=== PATIENT | female | born 1940 | race Two or more races ===

== ENCOUNTER 2020-05-05 01:36 | Inpatient (IN) | payer MEDICARE, OTHER ==
[2020-05-05] VITALS (7 sets, daily range): BP systolic 121–166; BP diastolic 46–76
[~2020-05-05] VITALS: Ht 165.1 cm; Wt 43.9 kg
[~2020-05-05 01:36] MED LIST: ASPI-630 PO; CETI10CA PO; CETI10TA74 PO; CLOP75TA57 PO; COLE3.753 PO; ESOM40CA PO; HYDR200T5 PO; LEVO500T8 PO; LISI10TA16 PO; METO25TA2 PO; NITR1PAT73 TD; OXYC1TAB15 PO; PRAV10TA2 PO; PRED-220 PO; PRED1TAB3 PO
--- NOTE | 2020-05-05 02:05 | NUR ---
ADMISSION NOTE: Patient arrived to room 536 via EMS at approximately 0115. Bed low, locked, call light within reach. Placed on 2L NC. Patient incontinent of stool, carlos alberto care performed.
--- NOTE | 2020-05-05 09:20 | PDOC2 ---
NEUROLOGY CONSULT Date of Service DOS: DATE: 05/05/20 TIME: 09:20 Reason for Consult Reason for Consult: Altered mental status Referring Physician Referring Physician: Dr. Langford Source Source: Chart review, Patient History of Present Illness History of Present Illness The patient is an 79-year-old right-handed female with history of dementia, stroke, presented to [facility] emergency room last night with 3 days of confusion. She was more fatigued, sleeping a lot, not conversant. At baseline, she can speak limitedly in short sentences. She has bilateral [id number]-kime amputations, gets around in a wheelchair. She had a seizure in 2011. She had a stroke several years ago, details unknown. She was hospitalized at [facility] less than 2 weeks ago for congestive heart failure. In the emergency room chest x-ray showed hazy opacities unchanged from before, she also had leukocytosis. It was felt she met criteria for systemic inflammatory response syndrome, they checked blood cultures and started antibiotics. Past Medical History Cardiovascular: CAD, Hyperlipidemia, Other (Peripheral vascular disease) Pulmonary: Asthma, Pneumonia Heme/Onc: Anemia NOS (Mediterranean anemia (thallasemia?)) Musculoskeletal: Osteoarthritis Rheumatologic: Rheumatoid arthritis Past Surgical History Past Surgical History: Tonsillectomy, Other (Breast, right lower lobectomy, bilateral AKA) Family History Family History: No pertinent hx Social History Social History , no tobacco or alcohol Current Medications Current Medications Active Scripts Active Reported Percocet 5-325 Mg Tablet (Oxycodone/Acetaminophen) 1 Each Tablet 1 Tab PO PRN Q4HRS PRN Levofloxacin 500 Mg Tablet 1 Tab PO DAILY Zyrtec (Cetirizine Hcl) 10 Mg Tablet 1 Tab PO DAILY Welchol (Colesevelam Hcl) 3.75 Gm Powd.pack 1 Packet PO DAILY Hydroxychloroquine Sulfate 200 Mg Tablet 1 Tab PO BID Prednisone 10 Mg Tablet 10 Mg PO DAILY Prednisone 1 Mg Tablet 4 Tab PO DAILY Nexium Capsule (Esomeprazole Magnesium) 40 Mg Capsule. 1 Cap PO DAILY Aspirin 81 Mg Tab.chew 1 Tab PO DAILY Plavix (Clopidogrel Bisulfate) 75 Mg Tablet 1 Tab PO DAILY Toprol Xl (Metoprolol Succinate) 25 Mg Tab.er.24h 1 Tab PO DAILY Lisinopril 10 Mg Tablet 1 Tab PO DAILY Percocet 5-325 Mg Tablet (Oxycodone/Acetaminophen) 1 Each Tablet 1 Tab PO Q4HRS PRN Zyrtec (Cetirizine Hcl) 10 Mg Capsule 10 Mg PO HS Pravastatin Sodium 10 Mg Tablet 1 Tab PO QHS Welchol (Colesevelam Hcl) 3.75 Gm Powd.pack 3.75 Gm PO HS NITRO-DUR 0.4mg/hr (Nitroglycerin) 1 Each Patch.td24 1 Each TD DAILY Allergies Allergies: Coded Allergies: egg (Verified Allergy, Severe, Swelling, 05/28/14) Fish Containing Products (Verified Allergy, Intermediate, Rash, 05/31/14) Rash and swelling. Sulfa (Sulfonamide Antibiotics) (Verified Allergy, Intermediate, Swelling, 05/31/14) cephalexin (Verified Allergy, Intermediate, Rash, 05/31/14) doxycycline (Verified Allergy, Intermediate, Rash, 05/31/14) hydrocodone (Verified Allergy, Intermediate, Rash, 05/31/14) ibandronate sodium (Verified Allergy, Intermediate, Rash, 05/31/14) adhesive (Verified Adverse Reaction, Mild, Rash, 05/31/14) ROS Review of System Negative for fever, chills, weight loss, shortness of breath, chest pain, indigestion, hematochezia, melena, and dysuria. Full 14-point review of systems is negative. Physical Exam Physical Examination General: Well-developed, well-nourished female in no acute distress HEENT: Normocephalic andatraumatic. Temporal arteriespulsatile and nontender. Neck: Supple without bruit, no meningismus Musculoskeletal: Stability:see neurologic. Gait exam:see neurologic. Tone:see neurologic.Strength:see neurologic. Neurological: Mental Status: orientation, memory, attention span/concentration, language, fund of knowledge: knows "hospital" not date or reason for admission. Cranial Nerves:Pupils equal and reactive to light, extraocular movements areintact, visual caputo are full to confrontation. Facial sensation is normal. There is no facial asymmetry. Vestibulo-ocular reflex is intact. Palate elevates and tongue protrudes in midline. All other cranial related problems are negative except as mentioned before.Reflexes:2+ and symmetric. Plantar: bialteral AKA. Motor:4/5 strength with normal tone and bulk. Coordination:Finger-nose finger normal. Rapid alternating movements and fine finger movements are intact. Gait:Not test ed. Sensory:Normal pinprick, vibration, light touch, proprioception. Vitals VITALS Vital Signs Date Time Temp Pulse Resp B/P (MAP) Pulse Ox O2 Delivery O2 Flow Rate FiO2 05/05/20 07:00 96.8 75 16 166/70 (102) 95 Room Air 96.8 05/05/20 01:15 2.0 Labs Labs Laboratory Tests from [facility]aleksandra Test 05/04/20 19:22 05/04/20 20:22 White Blood Count 13.1 x10^3/uL (4.0-11.0) Red Blood Count 6.37 x10^6/uL (3.50-5.40) Hemoglobin 9.8 g/dL (12.0-15.5) Hematocrit 34.0 % (36.0-47.0) Mean Corpuscular Volume 53 fL (79-100) Mean Corpuscular Hemoglobin 15 pg (25-35) Mean Corpuscular Hemoglobin Concent 29 g/dL (31-37) Red Cell Distribution Width 25.6 % (11.5-14.5) Platelet Count 336 x10^3/uL (140-400) Prothrombin Time 11.3 SEC (9.4-11.4) Prothromb Time International Ratio 1.1 (0.9-1.1) Activated Partial Thromboplast Time 24 SEC (23-33) Sodium Level 141 mmol/L (136-145) Potassium Level 4.0 mmol/L (3.5-5.1) Chloride Level 102 mmol/L (98-107) Carbon Dioxide Level 28 mmol/L (21-32) Anion Gap 11 (6-14) Blood Urea Nitrogen 22 mg/dL (7-20) Creatinine 0.8 mg/dL (0.6-1.0) Estimated GFR (Cockcroft-Gault) 68.8 Glucose Level 106 mg/dL (70-99) Glucose (Fingerstick) 112 mg/dL (70-99) Calcium Level 8.6 mg/dL (8.5-10.1) Troponin I Quantitative < 0.017 ng/mL (0-0.055) KM-Wom-T-Type Natriuretic Peptide 569 pg/mL (0-449) Urine Collection Type Unknown Urine Color Straw Urine Clarity Clear Urine pH 6.0 Urine Specific [place] 1.020 Urine Protein Neg (NEG-TRACE) Urine Glucose (UA) Neg mg/dL (NEG) Urine Ketones (Stick) 15 mg/dL (NEG) Urine Blood Neg (NEG) Urine Nitrite Neg (NEG) Urine Bilirubin Neg (NEG) Urine Urobilinogen Dipstick 0.2 mg/dL (0.2 mg/dL) Urine Leukocyte Esterase Trace (NEG) Urine RBC 0 /HPF (0-2) Urine WBC 0 /HPF (0-4) Urine Squamous Epithelial Cells None /LPF Urine Bacteria 0 /HPF (0-FEW) Laboratory Tests Test 05/04/20 19:22 Glucose (Fingerstick) 112 mg/dL (70-99) H Images Images CT head, [facility] No focal parenchymal lesion or hemorrhage is identified. There is no midline shift or sulcal effacement. Mild patchy hypodensity in the periventricular white matter, progressed from the study in 2016. No acute vascular territory infarction is identified. Youssef-white distinction is preserved. The ventricular system is within normal limits without compression hydrocephalus. The basal cisterns are well maintained. The visualized portions of the paranasal sinuses and mastoid air cells are well- pneumatized. No acute fractures. IMPRESSION: Moderate small vessel ischemic change, technically age indeterminate without recent prior imaging. No acute hemorrhage. Assessment/Plan Assessment/Plan Impression: Metabolic encephalopathy in the setting of dementia and history of prior strokes, but I am not finding any evidence of any acute stroke. She did meet criteria for sepsis syndrome. Remote history of seizure Recommendations: I am holding off on stroke work-up such as MRI of the brain Treatment of medical diseases, from description, she is already much more alert today. I left a message with the patient's . Thank you for letting me help with the patient's care. NICOLE LAO MD May 05, 2020 09:20
--- NOTE | 2020-05-05 09:47 | NUR ---
SW following. Discussed with RN, pt from home with , 2L (SW to determine if this is used at home), NPO. Pt having a speech eval to determine diet. Pt will likely need PT/OT. SW will continue to follow.
[2020-05-05] MEDS ORDERED: oxyCODONE/APAP 5/325 1 TAB TABLET PO PRN ×3 (10:15→15:01)
[2020-05-05 11:24] LABS: HEMATOCRIT 31.7 % (36.0-47.0); HEMOGLOBIN 9.1 g/dL (12.0-15.5); RED BLOOD COUNT 5.91 x10^6/uL (3.50-5.40); RED CELL DISTRIBUTION WIDTH 25.7 % (11.5-14.5); WHITE BLOOD COUNT 11.7 x10^3/uL (4.0-11.0)
[2020-05-05 11:45] LABS: ALBUMIN 2.3 g/dL (3.4-5.0); ALBUMIN/GLOBULIN RATIO 0.5 (1.0-1.7); CALCIUM 8.5 mg/dL (8.5-10.1); CREATININE 0.7 mg/dL (0.6-1.0); GFR 80.3; POTASSIUM 3.5 mmol/L (3.5-5.1); TOTAL BILIRUBIN 0.3 mg/dL (0.2-1.0); TOTAL PROTEIN 7.3 g/dL (6.4-8.2)
[2020-05-05] MEDS ORDERED: CETIRIZINE HCL 10 MG TABLET. PO SCH (12:00)
[2020-05-05] MEDS ORDERED: predniSONE 1 MG TABLET PO SCH (12:00)
[2020-05-05] MEDS ORDERED: METOPROLOL SUCC 24HR ER 25 MG TAB.ER.24H. PO SCH (12:00)
[2020-05-05] MEDS ORDERED: predniSONE 10 MG TABLET PO SCH (12:00)
--- NOTE | 2020-05-05 12:05 | HP ---
ADMIT DATE: 05/05/2020 HISTORY OF PRESENT ILLNESS: The patient is an 79-year-old -[place] female patient who was brought to the Emergency Department by her family for a chief complaint of lethargy and her stated that they were in the Emergency Department approximately 9-10 days ago for heart failure exacerbation. According to him, after she went home, she did seem to have improved and was at her baseline up until about 3 days ago. About 3 days ago, she appeared to be more fatigued than usual and slept a lot. He stated that she was so tired that she either could not or did not want to have any conversation. He stated that she does have dementia, cannot converse at baseline very well, but usually does speak at least in short sentences. stated that she has been eating and drinking and making urine approximately normally but was constipated for about a week and just had a bowel movement on the day of admission. Her denied any falls, fever, cough, any complaint of pain and he does not think that she is in pain. Denies any other contacts except for him since being discharged from the hospital. She was extensively investigated in the Emergency Room and basically has had lab work that mostly showed that she had mild leukocytosis, severe microcytic hypochromic anemia with a hemoglobin of 9.8, hematocrit 34 and MCV of 53 only. Her chemistry was mostly unremarkable as well as her coagulation testing. Urinalysis was essentially unremarkable. She did have a CT scan of the head which basically showed moderate small vessel ischemic changes, technically age indeterminate, without recent prior imaging. No acute hemorrhage. The ventricular system is within normal limits without compression hydrocephalus. The basal cisterns are well maintained. The visualized portion of the paranasal sinuses and mastoid air cells are well pneumatized and there are no acute fractures. Her chest x-ray showed enlarged cardiomediastinal silhouette with calcific atherosclerosis. She has mild interstitial prominence again seen bilaterally with mild haziness at the lung bases. Degenerative changes of the spine and shoulders. Basically given the altered mental status, the patient was transferred to [facility] to consult the neurologist and arrange for an MRI if deemed necessary. She was started and treated with levofloxacin and lactated Ringer's. PAST MEDICAL HISTORY: Significant for: 1. Seizure disorder. 2. Coronary artery disease status post myocardial infarction. 3. Hyperlipidemia. 4. Hypertension. 5. Bronchial asthma. 6. Gastroesophageal reflux disease. 7. Osteoporosis. 8. History of osteomyelitis. 9. Thalassemia. PAST SURGICAL HISTORY: Significant for PCI with stent deployment. She has also lobectomy as well as hysterectomy. She apparently is known to have also senile macular degeneration and dementia. ALLERGIES: She is allergic to FISH CONTAINING PRODUCTS, STATIN, SULFA DRUGS, ADHESIVES, CEPHALEXIN, DOXYCYCLINE, EGG and HYDROCODONE. MEDICATIONS: She is currently on the following medications: 1. She is on cetirizine 10 mg once a day. 2. Albuterol sulfate 2 puffs every 4-6 hours. 3. Nitroglycerin per Nitro-Dur 1 patch transdermal daily. 4. She is on atenolol 50 mg once a day. 5. Aspirin 81 mg once a day. 6. Tylenol 650 mg every 6 hours. 7. Risperidone 0.25 mg daily. 8. Potassium chloride 20 mEq daily. 9. Furosemide 40 mg once a day. 10. Tessalon Perles 100 mg daily. 11. Breo Ellipta 100/25 mcg 1 puff once a day. 12. She is on montelukast 10 mg at bedtime. 13. She is on Protonix 20 mg once a day. 14. Hydrocortisone cream applied topically twice a day. 15. Vitamin B complex for methylcobalamin 1000 mcg chewable tablet once a day. REVIEW OF SYSTEMS: As per history of present illness. CODE STATUS: She is a Full Code. SOCIAL HISTORY: She apparently lives with her . She does not smoke, drink alcohol or use any recreational drugs. FAMILY HISTORY: Noncontributory. PHYSICAL EXAMINATION: GENERAL: On arrival to the Emergency Room, the patient was pale, but no jaundice, cyanosis or thyromegaly. No jugular venous distention. No limb edema. VITAL SIGNS: Her heart rate was 70, blood pressure was 135/60, temperature was 100.5, respiratory rate was 16, and oxygen saturation was 99% on 2 liters of oxygen. HEAD, EYES, EARS, NOSE AND THROAT: Showed normocephalic, atraumatic. NECK: Supple. HEART: Normal first and second heart sounds. No gallop, rub or murmur. CHEST: Shows central trachea. Equal bilateral chest expansion, air entry, vesicular sounds. No crepitation or rhonchi. ABDOMEN: Distended, soft, nontender. NEUROLOGIC: She apparently was lethargic and has a Floweree coma scale of 13. NIH was difficult to obtain as the patient has bilateral lower extremity amputation. Has moderate to late stage dementia. The patient was extremely sleepy and falls asleep in between questions. Grossly sensations were intact. The patient is able to lift both arms and hold them. Able to smile and able to open eyes on command. LABORATORY DATA: In the Emergency Room, she has had lab work done which showed a white cell count of 13,100, hemoglobin 9.8, hematocrit 34, MCV 53, and a platelet count of 336,000. Her chemistry showed a serum sodium 141, potassium 4, chloride 102, bicarbonate 28, anion gap of 11, BUN 22, creatinine 0.8, estimated GFR was 68 mL per minute. Her glucose was 106, calcium was 8.6. Beta natriuretic peptide was 569. Her prothrombin time was 11.3, INR 1.1, aPTT was 24. Her urinalysis showed the urine was straw colored, clear with a pH of 6, specific gravity of 1.020. The urine was negative for protein, glucose. There was trace of ketones, negative for blood, nitrite and bilirubin. There was trace of leukocyte esterase. There were no rbc's, no wbc's, and no bacteria. IMAGING: Her chest x-ray showed the patient has enlarged cardiomediastinal silhouette with calcific atherosclerosis. Mild interstitial prominence is again seen bilaterally with mild haziness at the lung bases. Degenerative changes of the spine and shoulder. The impression is that the patient has mild interstitial opacities bilaterally and haziness at the lung bases, which could be chronic in nature with mild pulmonary vascular congestion. Interstitial infiltrate is not excluded given this finding. CT scan of the head showed no focal parenchymal lesion or hemorrhage identified. There is no midline shift or sulcal effacement. Mild patchy hypodensity in the periventricular white matter progressed from the study in 2016. No acute vascular territory infarction identified. [place]ola white distinction is preserved. The ventricular system is within normal limits without compression hydrocephalus. The basal cisterns are well maintained. The visualized portion of the paranasal sinuses and mastoid air cells are well pneumatized. The patient's primary care physician is Juliet Colbert and she normally was taking all her care at [facility]. However, attempt to transfer her there yesterday was not successful and therefore she was transferred to [facility] with altered mental status and pneumonia. PLAN: Plan is to consult Dr. Deal as well as to arrange for an MRI of her brain and to continue with IV antibiotic and all her other medications. PALOMO JUAREZ MD DR: JOSE ANTONIO/krystal JOB#: [id number] / [id number]
[2020-05-05] MEDS: ATENOLOL 50 MG TABLET. PO SCH (13:16)
[2020-05-05] MEDS: CLOPIDOGREL BISULFATE 75 MG TABLET PO SCH (13:17)
[2020-05-05] MEDS: FUROSEMIDE 40 MG TABLET. PO SCH (13:17)
[2020-05-05] MEDS: PANTOPRAZOLE 40 MG TABLET.DR. PO SCH (13:17)
[2020-05-05] MEDS: ASPIRIN CHEWABLE 81 MG TABLET. PO SCH (13:18)
[2020-05-05] MEDS: HYDROXYCHLOROQUINE 200 MG TABLET PO SCH ×2 (13:18→22:31)
[2020-05-05] MEDS: LISINOPRIL 10 MG TABLET PO SCH (13:18)
[2020-05-05] MEDS: POTASSIUM CHLORIDE 20 MEQ TABLET.ER. PO SCH (13:18)
[2020-05-05] MEDS: NITROGLYCERIN 0.4MG/HR PATCH. TD SCH (13:19)
--- NOTE | 2020-05-05 16:24 | NUR ---
Wound/Ostomy Care Wound Type/Assessment: Wound consult for bilateral buttock wounds. Pt has DTI to bilateral buttocks that is dark purple and very tender. Pictuured, measured and assessed wounds Treatment Recommendations/Plan: Applied A&D ointment and turned to right side. Pt should be right and left turns only except while eating Education provided: Pt educated on PU prevention and WC POC Offloading surface/device: wedge, pillows Recommended Referrals/Tests: na Discharge Recommendations for dressings: see above
[2020-05-05] MEDS ORDERED: VITS A & D/LANOLIN TOPICAL OINTMENT 42GM TUBE. TP PRN (16:30)
[2020-05-05] MEDS ORDERED: COLESEVELAM HCL 3.75 GM PO SCH (21:00)
[2020-05-05] MEDS: ATORVASTATIN CALCIUM 10 MG TABLET. PO SCH (22:31)
[2020-05-05] MEDS: CETIRIZINE HCL 10 MG TABLET. PO SCH (22:31)
[2020-05-05] MEDS: LACTOBACILLUS RHAMNOSUS GG 1 CAPSULE. PO SCH (22:31)
[2020-05-06 03:00] VITALS: BP 138/64
[2020-05-06] MEDS: PANTOPRAZOLE 40 MG TABLET.DR. PO SCH (05:46)
[2020-05-06 07:00] VITALS: BP 133/73
[2020-05-06 07:36] LABS: HEMATOCRIT 33.2 % (36.0-47.0); HEMOGLOBIN 9.6 g/dL (12.0-15.5); RED BLOOD COUNT 6.12 x10^6/uL (3.50-5.40); RED CELL DISTRIBUTION WIDTH 26.3 % (11.5-14.5); WHITE BLOOD COUNT 13.3 x10^3/uL (4.0-11.0)
[2020-05-06 08:15] LABS: ALBUMIN 2.3 g/dL (3.4-5.0); ALBUMIN/GLOBULIN RATIO 0.4 (1.0-1.7); CALCIUM 8.6 mg/dL (8.5-10.1); CREATININE 0.9 mg/dL (0.6-1.0); GFR 60.1; POTASSIUM 3.6 mmol/L (3.5-5.1); TOTAL BILIRUBIN 0.3 mg/dL (0.2-1.0); TOTAL PROTEIN 7.7 g/dL (6.4-8.2)
[2020-05-06] MEDS ORDERED: COLESEVELAM HCL PO SCH (09:00)
--- NOTE | 2020-05-06 09:31 | PN ---
DATE: 05/06/2020 SUBJECTIVE: The patient is awake, alert, responds appropriately at times. She is eating her breakfast this morning, although the family stated that she is not back to her baseline. PHYSICAL EXAMINATION: GENERAL: When I examined her, she was pale, not jaundiced or cyanosed. No thyromegaly. No jugular venous distention. No limb edema. VITAL SIGNS: Her heart rate was 72, blood pressure was 138/64, temperature was 98.4, respiratory rate was 18, and oxygen saturation 100% on room air. HEAD, EYES, EARS, NOSE AND THROAT: Normocephalic, atraumatic. NECK: Supple. HEART: Showed normal first and second heart sounds. No gallop or murmur. CHEST: Clear to auscultation. No crepitation or rhonchi. ABDOMEN: Distended, soft, nontender. NEUROLOGICAL: She is demented, but has senile macular degeneration, but all other cranial nerves are intact. EXTREMITIES: She moves upper extremities without difficulty. She has bilateral below-knee amputations. SKIN: She has bilateral buttock wounds. The patient has deep tissue injuries to bilateral buttocks that are dark purple and very tender, ____ wounds and were covered with dressing after applying A and D ointment. ASSESSMENT: 1. Altered mental status, improved. The patient is now more awake, alert. 2. Other medical problems include seizure disorder. 3. Coronary artery disease, status post myocardial infarction. 4. Hyperlipidemia. 5. Hypertension. 6. Bronchial asthma. 7. Gastroesophageal reflux disease. 8. Osteoporosis and osteoarthritis. 9. History of osteomyelitis. 10. Thalassemia. 11. Bilateral deep tendon injuries. 12. Dementia. 13. Senile macular degeneration. PALOMO JUAREZ MD DR: JOSE ANTONIO/krystal JOB#: [id number] / [id number]
[2020-05-06] MEDS: ATENOLOL 50 MG TABLET. PO SCH (10:03)
[2020-05-06] MEDS: POTASSIUM CHLORIDE 20 MEQ TABLET.ER. PO SCH (10:03)
[2020-05-06] MEDS: FUROSEMIDE 40 MG TABLET. PO SCH (10:04)
[2020-05-06] MEDS: LACTOBACILLUS RHAMNOSUS GG 1 CAPSULE. PO SCH ×2 (10:04→20:56)
[2020-05-06] MEDS: HYDROXYCHLOROQUINE 200 MG TABLET PO SCH ×2 (10:04→20:56)
[2020-05-06] MEDS: ASPIRIN CHEWABLE 81 MG TABLET. PO SCH (10:04)
[2020-05-06] MEDS: CLOPIDOGREL BISULFATE 75 MG TABLET PO SCH (10:05)
[2020-05-06] MEDS: LISINOPRIL 10 MG TABLET PO SCH (10:05)
[2020-05-06] MEDS: NITROGLYCERIN 0.4MG/HR PATCH. TD SCH (10:07)
--- NOTE | 2020-05-06 10:38 | NUR ---
SW following. Discussed with RN, pt from home with , room air, dysphagia II. Pt is total feed and bed bound at home. PT/OT ordered. RN stated her paperwork states pt has home health - SW to determine which home health company pt is with. SW will continue to follow.
[2020-05-06 11:00] VITALS: BP 121/66
--- NOTE | 2020-05-06 13:06 | PDOC ---
PROGRESS NOTES Date of Service DATE: 05/06/20 TIME: 13:04 Assessment Metabolic encephalopathy in the setting of dementia and history of prior strokes, but I am not finding any evidence of any acute stroke. She did meet criteria for sepsis syndrome. Remote history of seizure Plan Holding off on stroke work-up such as MRI of the brain Treatment of medical diseases, already much better Aim for discharge in the next day or [address] Langford Discussed with family Subjective No complaints Objective Vital Signs Date Time Temp Pulse Resp B/P (MAP) Pulse Ox O2 Delivery O2 Flow Rate FiO2 05/06/20 11:00 97.9 88 18 121/66 (84) 96 Room Air 97.9 05/05/20 20:00 2.0 Intake and Output 05/06/20 07:00 Intake Total 360 ml Output Total 825 ml Balance -465 ml Intake Oral 360 ml Output Urine Total 825 ml # Bowel Movements 2 PHYSICAL EXAM Alert. Does not know name of hospital or date PERRL. EOMI. CN: no focal findings. Muscle tone: normal. Muscle strength: 4/5 DTR: 2+ Plantar reflex: Flexor Gait: not examined in bed. Sensory exam: no abnormal findings. No cerebellar signs elicited. Review of Relevant I have reviewed the following items zaik (where applicable) has been applied. Labs Laboratory Tests Test 05/05/20 11:13 05/06/20 07:18 White Blood Count 11.7 x10^3/uL (4.0-11.0) 13.3 x10^3/uL (4.0-11.0) Red Blood Count 5.91 x10^6/uL (3.50-5.40) 6.12 x10^6/uL (3.50-5.40) Hemoglobin 9.1 g/dL (12.0-15.5) 9.6 g/dL (12.0-15.5) Hematocrit 31.7 % (36.0-47.0) 33.2 % (36.0-47.0) Mean Corpuscular Volume 54 fL (79-100) 54 fL (79-100) Mean Corpuscular Hemoglobin 15 pg (25-35) 16 pg (25-35) Mean Corpuscular Hemoglobin Concent 29 g/dL (31-37) 29 g/dL (31-37) Red Cell Distribution Width 25.7 % (11.5-14.5) 26.3 % (11.5-14.5) Platelet Count 341 x10^3/uL (140-400) 318 x10^3/uL (140-400) Sodium Level 141 mmol/L (136-145) 144 mmol/L (136-145) Potassium Level 3.5 mmol/L (3.5-5.1) 3.6 mmol/L (3.5-5.1) Chloride Level 103 mmol/L (98-107) 106 mmol/L (98-107) Carbon Dioxide Level 27 mmol/L (21-32) 27 mmol/L (21-32) Anion Gap 11 (6-14) 11 (6-14) Blood Urea Nitrogen 23 mg/dL (7-20) 32 mg/dL (7-20) Creatinine 0.7 mg/dL (0.6-1.0) 0.9 mg/dL (0.6-1.0) Estimated GFR (Cockcroft-Gault) 80.3 60.1 BUN/Creatinine Ratio 33 (6-20) 36 (6-20) Glucose Level 83 mg/dL (70-99) 118 mg/dL (70-99) Calcium Level 8.5 mg/dL (8.5-10.1) 8.6 mg/dL (8.5-10.1) Total Bilirubin 0.3 mg/dL (0.2-1.0) 0.3 mg/dL (0.2-1.0) Aspartate Amino Transf (AST/SGOT) 32 U/L (15-37) 32 U/L (15-37) Alanine Aminotransferase (ALT/SGPT) 18 U/L (14-59) 19 U/L (14-59) Alkaline Phosphatase 70 U/L (46-116) 72 U/L (46-116) Total Protein 7.3 g/dL (6.4-8.2) 7.7 g/dL (6.4-8.2) Albumin 2.3 g/dL (3.4-5.0) 2.3 g/dL (3.4-5.0) Albumin/Globulin Ratio 0.5 (1.0-1.7) 0.4 (1.0-1.7) Laboratory Tests Test 05/06/20 07:18 White Blood Count 13.3 x10^3/uL (4.0-11.0) Red Blood Count 6.12 x10^6/uL (3.50-5.40) Hemoglobin 9.6 g/dL (12.0-15.5) Hematocrit 33.2 % (36.0-47.0) Mean Corpuscular Volume 54 fL (79-100) Mean Corpuscular Hemoglobin 16 pg (25-35) Mean Corpuscular Hemoglobin Concent 29 g/dL (31-37) Red Cell Distribution Width 26.3 % (11.5-14.5) Platelet Count 318 x10^3/uL (140-400) Sodium Level 144 mmol/L (136-145) Potassium Level 3.6 mmol/L (3.5-5.1) Chloride Level 106 mmol/L (98-107) Carbon Dioxide Level 27 mmol/L (21-32) Anion Gap 11 (6-14) Blood Urea Nitrogen 32 mg/dL (7-20) Creatinine 0.9 mg/dL (0.6-1.0) Estimated GFR (Cockcroft-Gault) 60.1 BUN/Creatinine Ratio 36 (6-20) Glucose Level 118 mg/dL (70-99) Calcium Level 8.6 mg/dL (8.5-10.1) Total Bilirubin 0.3 mg/dL (0.2-1.0) Aspartate Amino Transf (AST/SGOT) 32 U/L (15-37) Alanine Aminotransferase (ALT/SGPT) 19 U/L (14-59) Alkaline Phosphatase 72 U/L (46-116) Total Protein 7.7 g/dL (6.4-8.2) Albumin 2.3 g/dL (3.4-5.0) Albumin/Globulin Ratio 0.4 (1.0-1.7) Medications Current Medications Aspirin (Aspirin Chewable) 81 mg DAILY PO Last administered on 05/06/20at 10:04; Start 05/05/20 at 12:00 Cetirizine HCl (ZyrTEC) 10 mg DAILY PO ; Start 05/05/20 at 12:00; Stop 05/05/20 at 10:20; Status DC Clopidogrel Bisulfate (Plavix) 75 mg DAILY PO Last administered on 05/06/20at 10:05; Start 05/05/20 at 12:00 Hydroxychloroquine Sulfate (Plaquenil) 200 mg BID PO Last administered on 05/06/20at 10:04; Start 05/05/20 at 12:00 Levofloxacin (Levaquin) 500 mg DAILY PO ; Start 05/06/20 at 09:00; Stop 05/05/20 at 10:38; Status DC Lisinopril (Prinivil) 10 mg DAILY PO Last administered on 05/06/20at 10:05; Start 05/05/20 at 12:00 Metoprolol Succinate (Toprol Xl) 25 mg DAILY PO ; Start 05/05/20 at 12:00; Stop 05/05/20 at 11:54; Status DC Nitroglycerin (Nitro-Dur 0.4mg) 1 patch DAILY TD Last administered on 05/06/20at 10:07; Start 05/05/20 at 12:00 Oxycodone/ Acetaminophen (Percocet 5/325) 1 tab PRN Q4HRS PRN PO MODERATE PAIN; Start 05/05/20 at 10:15; Stop 05/06/20 at 08:56; Status DC Oxycodone/ Acetaminophen (Percocet 5/325) 1 tab PRN Q4HRS PRN PO SEVERE PAIN; Start 05/05/20 at 10:15; Stop 05/05/20 at 15:01; Status DC Prednisone (Prednisone) 4 mg DAILY PO ; Start 05/05/20 at 12:00; Status Cancel Prednisone (Prednisone) 10 mg DAILY PO ; Start 05/05/20 at 12:00; Stop 05/05/20 at 11:50; Status DC Cetirizine HCl (ZyrTEC) 10 mg HS PO Last administered on 05/05/20at 22:31; Start 05/05/20 at 21:00 Non-Formulary Medication (Colesevelam Hcl (Welchol)) 1 packet DAILY PO ; Start 05/06/20 at 09:00; Stop 05/05/20 at 10:47; Status DC Non-Formulary Medication (Colesevelam Hcl (Welchol)) 3.75 gm HS PO ; Start 05/05/20 at 21:00; Stop 05/05/20 at 10:47; Status DC Pantoprazole Sodium (Protonix) 40 mg DAILYAC PO Last administered on 05/06/20at 05:46; Start 05/05/20 at 12:00 Atorvastatin Calcium (Lipitor) 5 mg QHS PO Last administered on 05/05/20at 22:31; Start 05/05/20 at 21:00 Levofloxacin/ Dextrose 100 ml @ 100 mls/hr Q24H IV ; Start 05/05/20 at 21:15; Stop 05/05/20 at 10:54; Status DC Levofloxacin/ Dextrose 50 ml @ 50 mls/hr Q24H IV Last administered on 05/05/20at 22:33; Start 05/05/20 at 21:00 Furosemide (Lasix) 40 mg DAILY PO Last administered on 05/06/20at 10:04; Start 05/05/20 at 13:00 Potassium Chloride (Klor-Con) 20 meq DAILYWBKFT PO Last administered on 05/06/20at 10:03; Start 05/05/20 at 13:00 Atenolol (Tenormin) 50 mg DAILY PO Last administered on 05/06/20at 10:03; Start 05/05/20 at 13:00 Oxycodone/ Acetaminophen (Percocet 5/325) 2 tab PRN Q4HRS PRN PO SEVERE PAIN; Start 05/05/20 at 15:01; Stop 05/06/20 at 08:56; Status DC Lactobacillus Rhamnosus (Culturelle) 1 cap BID PO Last administered on 05/06/20at 10:04; Start 05/05/20 at 21:00 Vitamin A/Vitamin D (Vitamin A & D Ointment) 1 leigha PRN Q1HR PRN TP SKIN PROTECTION; Start 05/05/20 at 16:30 Active Scripts Active Reported Percocet 5-325 Mg Tablet (Oxycodone/Acetaminophen) 1 Each Tablet 1 Tab PO PRN Q4HRS PRN Levofloxacin 500 Mg Tablet 1 Tab PO DAILY Zyrtec (Cetirizine Hcl) 10 Mg Tablet 1 Tab PO DAILY Welchol (Colesevelam Hcl) 3.75 Gm Powd.pack 1 Packet PO DAILY Hydroxychloroquine Sulfate 200 Mg Tablet 1 Tab PO BID Prednisone (Prednisone) 10 Mg Tablet 10 Mg PO DAILY Prednisone 1 Mg Tablet 4 Tab PO DAILY Nexium Capsule (Esomeprazole Magnesium) 40 Mg Capsule.dr 1 Cap PO DAILY Aspirin 81 Mg Tab.chew 1 Tab PO DAILY Plavix (Clopidogrel Bisulfate) 75 Mg Tablet 1 Tab PO DAILY Toprol Xl (Metoprolol Succinate) 25 Mg Tab.er.24h 1 Tab PO DAILY Lisinopril 10 Mg Tablet 1 Tab PO DAILY Percocet 5-325 Mg Tablet (Oxycodone/Acetaminophen) 1 Each Tablet 1 Tab PO Q4HRS PRN Zyrtec (Cetirizine Hcl) 10 Mg Capsule 10 Mg PO HS Pravastatin Sodium 10 Mg Tablet 1 Tab PO QHS Welchol (Colesevelam Hcl) 3.75 Gm Powd.pack 3.75 Gm PO HS NITRO-DUR 0.4mg/hr (Nitroglycerin) 1 Each Patch.td24 1 Each TD DAILY Vitals/I & O Vital Sign - Last 24 Hours 05/05/20 05/05/20 05/05/20 05/05/20 13:16 13:18 15:00 19:00 Temp 99.0 98.1 99.0 98.1 Pulse 72 72 79 72 Resp 16 18 B/P (MAP) 132/53 132/53 123/46 (71) 121/60 (80) Pulse Ox 93 97 O2 Delivery Room Air Room Air 05/05/20 05/05/20 05/06/20 05/06/20 20:00 23:00 03:00 07:00 Temp 98.0 98.4 98.1 98.0 98.4 98.1 Pulse 70 72 79 Resp 18 18 17 B/P (MAP) 124/63 (83) 138/64 (88) 133/73 (93) Pulse Ox 100 100 93 O2 Delivery Nasal Cannula Room Air Room Air Room Air O2 Flow Rate 2.0 05/06/20 05/06/20 05/06/20 10:03 10:05 11:00 Temp 97.9 97.9 Pulse 79 79 88 Resp 18 B/P (MAP) 133/73 133/73 121/66 (84) Pulse Ox 96 O2 Delivery Room Air Intake and Output 05/05/20 05/05/20 05/06/20 15:00 23:00 07:00 Intake Total 120 ml 240 ml Output Total 425 ml 400 ml Balance -305 ml -160 ml Justicifation of Admission Dx: Justifications for Admission: Justification of Admission Dx: N/A NICOLE LAO MD May 06, 2020 13:06
[2020-05-06 15:00] VITALS: BP 103/47
[2020-05-06] MEDS: ASCORBIC ACID 500 MG TABLET PO SCH (15:10)
[2020-05-06] MEDS: MULTIVITAMIN with MINERAL TABLET. PO SCH (15:10)
[2020-05-06 19:02] VITALS: BP 128/57
[2020-05-06] MEDS: CETIRIZINE HCL 10 MG TABLET. PO SCH (20:56)
[2020-05-06] MEDS: ATORVASTATIN CALCIUM 10 MG TABLET. PO SCH (20:57)
[2020-05-06 23:00] VITALS: BP 114/43
[2020-05-07 02:46] VITALS: BP 136/61
[2020-05-07 07:00] VITALS: BP 145/63
[2020-05-07 08:05] LABS: HEMATOCRIT 31.8 % (36.0-47.0); HEMOGLOBIN 9.4 g/dL (12.0-15.5); RED BLOOD COUNT 5.89 x10^6/uL (3.50-5.40); RED CELL DISTRIBUTION WIDTH 26.1 % (11.5-14.5); WHITE BLOOD COUNT 9.8 x10^3/uL (4.0-11.0)
[2020-05-07 08:20] LABS: ALBUMIN 2.3 g/dL (3.4-5.0); ALBUMIN/GLOBULIN RATIO 0.4 (1.0-1.7); CALCIUM 8.4 mg/dL (8.5-10.1); GFR 53.2; POTASSIUM 3.6 mmol/L (3.5-5.1); TOTAL BILIRUBIN 0.2 mg/dL (0.2-1.0); TOTAL PROTEIN 7.5 g/dL (6.4-8.2)
--- NOTE | 2020-05-07 09:37 | PN ---
DATE: 05/07/2020 SUBJECTIVE: The patient is resting, slightly propped up in bed, in no apparent respiratory distress. She is awake and alert. She is responding at times appropriately. She is mostly bedbound. PHYSICAL EXAMINATION: GENERAL: When I examined her, she was pale, but no jaundice, cyanosis or thyromegaly. No jugular venous distension. No limb edema. VITAL SIGNS: Her heart rate was 69, blood pressure was 145/63, temperature 97.6, respiratory rate was 18 and oxygen saturation was 95% on room air. HEAD, EYES, EARS, NOSE AND THROAT: Normocephalic, atraumatic. NECK: Supple. HEART: Showed normal first and second heart sounds. No gallop or murmur. CHEST: Clear to auscultation. No crepitation or rhonchi. ABDOMEN: Distended, soft, nontender. NEUROLOGIC: She is demented, but without any obvious lateralizing sign. 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 She moves upper extremities without difficulty. She has bilateral below-knee amputation. She does have bilateral gluteal deep tissue injury. Her intake was 360, output was 825. LABORATORY DATA: Her lab work this morning showed her white cell count is 9800, hemoglobin 9.4, hematocrit 32, MCV 54 and platelet count 275. Serum sodium of 148, potassium 3.6, chloride 110, bicarbonate 29, anion gap of 9, BUN 37, creatinine 1 and estimated GFR was 53 mL per minute. Her glucose was 99 and calcium was 8.4. Total bilirubin, AST, ALT and alkaline phosphatase were normal. Total protein 7.5, albumin was 2.3. ASSESSMENT AND PLAN Given that her serum sodium is going up, I will hold her Lasix and continue meanwhile with all other medication including IV levofloxacin for pneumonia. Continue with wound care. She will be discharged home. As her family state that the house is not ready for her, they ordered a hospital bed and she can be discharged there tomorrow with home health. PALOMO JUAREZ MD DR: JOSE ANTONIO/krystal JOB#: [id number] / [id number]
[2020-05-07] MEDS: ASPIRIN CHEWABLE 81 MG TABLET. PO SCH (10:07)
[2020-05-07] MEDS: LISINOPRIL 10 MG TABLET PO SCH (10:07)
[2020-05-07] MEDS: MULTIVITAMIN with MINERAL TABLET. PO SCH (10:07)
[2020-05-07] MEDS: LACTOBACILLUS RHAMNOSUS GG 1 CAPSULE. PO SCH ×2 (10:07→20:30)
[2020-05-07] MEDS: ASCORBIC ACID 500 MG TABLET PO SCH (10:07)
[2020-05-07] MEDS: POTASSIUM CHLORIDE 20 MEQ TABLET.ER. PO SCH (10:08)
[2020-05-07] MEDS: PANTOPRAZOLE 40 MG TABLET.DR. PO SCH (10:08)
[2020-05-07] MEDS: ATENOLOL 50 MG TABLET. PO SCH (10:08)
[2020-05-07] MEDS: CLOPIDOGREL BISULFATE 75 MG TABLET PO SCH (10:08)
[2020-05-07] MEDS: NITROGLYCERIN 0.4MG/HR PATCH. TD SCH (10:09)
[2020-05-07 11:00] VITALS: BP 147/58
--- NOTE | 2020-05-07 11:28 | NUR ---
SW following. Discussed with RN, pt from home with , room air, dysphagia II diet. Dr. Langford plans to discharge pt home with [facility] tomorrow (05/08/20). SW verified pt is current with [facility]. SW to fax clinicals and discharge orders tomorrow prior to dischage. SW will continue to follow.
[2020-05-07 15:00] VITALS: BP 120/52
--- NOTE | 2020-05-07 15:37 | PDOC ---
PROGRESS NOTES Date of Service DATE: 05/07/20 TIME: 15:35 Assessment Metabolic encephalopathy in the setting of dementia and history of prior strokes, but I am not finding any evidence of any acute stroke. She did meet criteria for sepsis syndrome. Remote history of seizure Plan Holding off on stroke work-up such as MRI of the brain Treatment of medical diseases, already much better Okay for discharge Neurology signs off. Follow-up with neurology as needed. Objective Vital Signs Date Time Temp Pulse Resp B/P (MAP) Pulse Ox O2 Delivery O2 Flow Rate FiO2 05/07/20 15:00 97.5 66 18 120/52 (74) 96 Room Air 97.5 Intake and Output 05/07/20 07:00 Intake Total 260 ml Output Total 450 ml Balance -190 ml Intake Oral 260 ml Output Urine Total 450 ml Stool Total 0 ml PHYSICAL EXAM Alert. Does not know name of hospital or date PERRL. EOMI. CN: no focal findings. Muscle tone: normal. Muscle strength: 4/5 DTR: 2+ Plantar reflex: Flexor Gait: not examined in bed. Sensory exam: no abnormal findings. No cerebellar signs elicited. Review of Relevant I have reviewed the following items zaki (where applicable) has been applied. Labs Laboratory Tests Test 05/06/20 07:18 05/07/20 06:45 White Blood Count 13.3 x10^3/uL (4.0-11.0) 9.8 x10^3/uL (4.0-11.0) Red Blood Count 6.12 x10^6/uL (3.50-5.40) 5.89 x10^6/uL (3.50-5.40) Hemoglobin 9.6 g/dL (12.0-15.5) 9.4 g/dL (12.0-15.5) Hematocrit 33.2 % (36.0-47.0) 31.8 % (36.0-47.0) Mean Corpuscular Volume 54 fL (79-100) 54 fL (79-100) Mean Corpuscular Hemoglobin 16 pg (25-35) 16 pg (25-35) Mean Corpuscular Hemoglobin Concent 29 g/dL (31-37) 30 g/dL (31-37) Red Cell Distribution Width 26.3 % (11.5-14.5) 26.1 % (11.5-14.5) Platelet Count 318 x10^3/uL (140-400) 275 x10^3/uL (140-400) Sodium Level 144 mmol/L (136-145) 148 mmol/L (136-145) Potassium Level 3.6 mmol/L (3.5-5.1) 3.6 mmol/L (3.5-5.1) Chloride Level 106 mmol/L (98-107) 110 mmol/L (98-107) Carbon Dioxide Level 27 mmol/L (21-32) 29 mmol/L (21-32) Anion Gap 11 (6-14) 9 (6-14) Blood Urea Nitrogen 32 mg/dL (7-20) 32 mg/dL (7-20) Creatinine 0.9 mg/dL (0.6-1.0) 1.0 mg/dL (0.6-1.0) Estimated GFR (Cockcroft-Gault) 60.1 53.2 BUN/Creatinine Ratio 36 (6-20) 32 (6-20) Glucose Level 118 mg/dL (70-99) 99 mg/dL (70-99) Calcium Level 8.6 mg/dL (8.5-10.1) 8.4 mg/dL (8.5-10.1) Total Bilirubin 0.3 mg/dL (0.2-1.0) 0.2 mg/dL (0.2-1.0) Aspartate Amino Transf (AST/SGOT) 32 U/L (15-37) 30 U/L (15-37) Alanine Aminotransferase (ALT/SGPT) 19 U/L (14-59) 18 U/L (14-59) Alkaline Phosphatase 72 U/L (46-116) 67 U/L (46-116) Total Protein 7.7 g/dL (6.4-8.2) 7.5 g/dL (6.4-8.2) Albumin 2.3 g/dL (3.4-5.0) 2.3 g/dL (3.4-5.0) Albumin/Globulin Ratio 0.4 (1.0-1.7) 0.4 (1.0-1.7) Laboratory Tests Test 05/07/20 06:45 White Blood Count 9.8 x10^3/uL (4.0-11.0) Red Blood Count 5.89 x10^6/uL (3.50-5.40) Hemoglobin 9.4 g/dL (12.0-15.5) Hematocrit 31.8 % (36.0-47.0) Mean Corpuscular Volume 54 fL (79-100) Mean Corpuscular Hemoglobin 16 pg (25-35) Mean Corpuscular Hemoglobin Concent 30 g/dL (31-37) Red Cell Distribution Width 26.1 % (11.5-14.5) Platelet Count 275 x10^3/uL (140-400) Sodium Level 148 mmol/L (136-145) Potassium Level 3.6 mmol/L (3.5-5.1) Chloride Level 110 mmol/L (98-107) Carbon Dioxide Level 29 mmol/L (21-32) Anion Gap 9 (6-14) Blood Urea Nitrogen 32 mg/dL (7-20) Creatinine 1.0 mg/dL (0.6-1.0) Estimated GFR (Cockcroft-Gault) 53.2 BUN/Creatinine Ratio 32 (6-20) Glucose Level 99 mg/dL (70-99) Calcium Level 8.4 mg/dL (8.5-10.1) Total Bilirubin 0.2 mg/dL (0.2-1.0) Aspartate Amino Transf (AST/SGOT) 30 U/L (15-37) Alanine Aminotransferase (ALT/SGPT) 18 U/L (14-59) Alkaline Phosphatase 67 U/L (46-116) Total Protein 7.5 g/dL (6.4-8.2) Albumin 2.3 g/dL (3.4-5.0) Albumin/Globulin Ratio 0.4 (1.0-1.7) Medications Current Medications Aspirin (Aspirin Chewable) 81 mg DAILY PO Last administered on 05/07/20at 10:07; Start 05/05/20 at 12:00 Cetirizine HCl (ZyrTEC) 10 mg DAILY PO ; Start 05/05/20 at 12:00; Stop 05/05/20 at 10:20; Status DC Clopidogrel Bisulfate (Plavix) 75 mg DAILY PO Last administered on 05/07/20at 10:08; Start 05/05/20 at 12:00 Hydroxychloroquine Sulfate (Plaquenil) 200 mg BID PO Last administered on 05/06/20at 20:56; Start 05/05/20 at 12:00; Stop 05/07/20 at 09:19; Status DC Levofloxacin (Levaquin) 500 mg DAILY PO ; Start 05/06/20 at 09:00; Stop 05/05/20 at 10:38; Status DC Lisinopril (Prinivil) 10 mg DAILY PO Last administered on 05/07/20at 10:07; Start 05/05/20 at 12:00 Metoprolol Succinate (Toprol Xl) 25 mg DAILY PO ; Start 05/05/20 at 12:00; Stop 05/05/20 at 11:54; Status DC Nitroglycerin (Nitro-Dur 0.4mg) 1 patch DAILY TD Last administered on 05/07/20at 10:09; Start 05/05/20 at 12:00 Oxycodone/ Acetaminophen (Percocet 5/325) 1 tab PRN Q4HRS PRN PO MODERATE PAIN; Start 05/05/20 at 10:15; Stop 05/06/20 at 08:56; Status DC Oxycodone/ Acetaminophen (Percocet 5/325) 1 tab PRN Q4HRS PRN PO SEVERE PAIN; Start 05/05/20 at 10:15; Stop 05/05/20 at 15:01; Status DC Prednisone (Prednisone) 4 mg DAILY PO ; Start 05/05/20 at 12:00; Status Cancel Prednisone (Prednisone) 10 mg DAILY PO ; Start 05/05/20 at 12:00; Stop 05/05/20 at 11:50; Status DC Cetirizine HCl (ZyrTEC) 10 mg HS PO Last administered on 05/06/20at 20:56; Start 05/05/20 at 21:00 Non-Formulary Medication (Colesevelam Hcl (Welchol)) 1 packet DAILY PO ; Start 05/06/20 at 09:00; Stop 05/05/20 at 10:47; Status DC Non-Formulary Medication (Colesevelam Hcl (Welchol)) 3.75 gm HS PO ; Start 05/05/20 at 21:00; Stop 05/05/20 at 10:47; Status DC Pantoprazole Sodium (Protonix) 40 mg DAILYAC PO Last administered on 05/07/20at 10:08; Start 05/05/20 at 12:00 Atorvastatin Calcium (Lipitor) 5 mg QHS PO Last administered on 05/06/20at 20:57; Start 05/05/20 at 21:00 Levofloxacin/ Dextrose 100 ml @ 100 mls/hr Q24H IV ; Start 05/05/20 at 21:15; Stop 05/05/20 at 10:54; Status DC Levofloxacin/ Dextrose 50 ml @ 50 mls/hr Q24H IV Last administered on 05/06/20at 20:53; Start 05/05/20 at 21:00 Furosemide (Lasix) 40 mg DAILY PO Last administered on 05/06/20at 10:04; Start 05/05/20 at 13:00; Stop 05/07/20 at 09:32; Status DC Potassium Chloride (Klor-Con) 20 meq DAILYWBKFT PO Last administered on 05/07/20at 10:08; Start 05/05/20 at 13:00 Atenolol (Tenormin) 50 mg DAILY PO Last administered on 05/07/20at 10:08; Start 05/05/20 at 13:00 Oxycodone/ Acetaminophen (Percocet 5/325) 2 tab PRN Q4HRS PRN PO SEVERE PAIN; Start 05/05/20 at 15:01; Stop 05/06/20 at 08:56; Status DC Lactobacillus Rhamnosus (Culturelle) 1 cap BID PO Last administered on 05/07/20at 10:07; Start 05/05/20 at 21:00 Vitamin A/Vitamin D (Vitamin A & D Ointment) 1 leigha PRN Q1HR PRN TP SKIN PROTECTION; Start 05/05/20 at 16:30 Multivitamins (Thera M Plus) 1 tab DAILY PO Last administered on 05/07/20at 10:07; Start 05/06/20 at 14:15 Ascorbic Acid (Vitamin C) 500 mg DAILY PO Last administered on 05/07/20at 10:07; Start 05/06/20 at 14:15 Active Scripts Active Reported Percocet 5-325 Mg Tablet (Oxycodone/Acetaminophen) 1 Each Tablet 1 Tab PO PRN Q4HRS PRN Levofloxacin 500 Mg Tablet 1 Tab PO DAILY Zyrtec (Cetirizine Hcl) 10 Mg Tablet 1 Tab PO DAILY Welchol (Colesevelam Hcl) 3.75 Gm Powd.pack 1 Packet PO DAILY Hydroxychloroquine Sulfate 200 Mg Tablet 1 Tab PO BID Prednisone (Prednisone) 10 Mg Tablet 10 Mg PO DAILY Prednisone 1 Mg Tablet 4 Tab PO DAILY Nexium Capsule (Esomeprazole Magnesium) 40 Mg Capsule.dr 1 Cap PO DAILY Aspirin 81 Mg Tab.chew 1 Tab PO DAILY Plavix (Clopidogrel Bisulfate) 75 Mg Tablet 1 Tab PO DAILY Toprol Xl (Metoprolol Succinate) 25 Mg Tab.er.24h 1 Tab PO DAILY Lisinopril 10 Mg Tablet 1 Tab PO DAILY Percocet 5-325 Mg Tablet (Oxycodone/Acetaminophen) 1 Each Tablet 1 Tab PO Q4HRS PRN Zyrtec (Cetirizine Hcl) 10 Mg Capsule 10 Mg PO HS Pravastatin Sodium 10 Mg Tablet 1 Tab PO QHS Welchol (Colesevelam Hcl) 3.75 Gm Powd.pack 3.75 Gm PO HS NITRO-DUR 0.4mg/hr (Nitroglycerin) 1 Each Patch.td24 1 Each TD DAILY Vitals/I & O Vital Sign - Last 24 Hours 05/06/20 05/06/20 05/06/20 05/07/20 19:02 20:00 23:00 02:46 Temp 98.7 98.0 98.1 98.7 98.0 98.1 Pulse 90 71 70 Resp 20 18 18 B/P (MAP) 128/57 (80) 114/43 (66) 136/61 (86) Pulse Ox 94 98 95 O2 Delivery Room Air Room Air Room Air Room Air 05/07/20 05/07/20 05/07/20 05/07/20 07:00 08:00 10:07 10:08 Temp 97.6 97.6 Pulse 69 69 69 Resp 18 B/P (MAP) 145/63 (90) 145/63 145/63 Pulse Ox 95 O2 Delivery Room Air Room Air 05/07/20 05/07/20 11:00 15:00 Temp 98.1 97.5 98.1 97.5 Pulse 66 66 Resp 18 18 B/P (MAP) 147/58 (87) 120/52 (74) Pulse Ox 95 96 O2 Delivery Room Air Room Air l Intake and Output 05/06/20 05/06/2021 15:00 23:00 07:00 Intake Total 260 ml Output Total 250 ml 200 ml 0 ml Balance -250 ml 60 ml 0 ml Justicifation of Admission Dx: Justifications for Admission: Justification of Admission Dx: N/A NICOLE LAO MD May 07, 2020 15:37
[2020-05-07 19:00] VITALS: BP 126/28
[2020-05-07] MEDS: ATORVASTATIN CALCIUM 10 MG TABLET. PO SCH (20:30)
[2020-05-07] MEDS: CETIRIZINE HCL 10 MG TABLET. PO SCH (20:30)
[2020-05-07 23:00] VITALS: BP 137/41
[2020-05-08] VITALS (7 sets, daily range): BP systolic 118–214; BP diastolic 43–88
[2020-05-08] MEDS: PANTOPRAZOLE 40 MG TABLET.DR. PO SCH (05:26)
[2020-05-08] MEDS: POTASSIUM CHLORIDE 20 MEQ TABLET.ER. PO SCH (08:00)
--- NOTE | 2020-05-08 08:50 | NUR ---
PATIENTS' DAUGHTER AT THE BEDSIDE AND INFORMED THIS GASOLINE FINISHER THAT THE PATIENTS' FAMILY MEMBERS (2 SONS) HAVE TESTED POSITIVE FOR COVI-19 AND THAT THEY HAVE BEEN IN CONTACT WITH THE PATIENT, DR. JUAREZ INFORMED AND ORDERS RECEIVED.
[2020-05-08] MEDS: LACTOBACILLUS RHAMNOSUS GG 1 CAPSULE. PO SCH ×2 (09:00→19:44)
[2020-05-08] MEDS: ASPIRIN CHEWABLE 81 MG TABLET. PO SCH (09:00)
[2020-05-08] MEDS: MULTIVITAMIN with MINERAL TABLET. PO SCH (09:00)
[2020-05-08] MEDS: LISINOPRIL 10 MG TABLET PO SCH (09:00)
[2020-05-08] MEDS: CLOPIDOGREL BISULFATE 75 MG TABLET PO SCH (09:00)
[2020-05-08] MEDS: ATENOLOL 50 MG TABLET. PO SCH (09:00)
[2020-05-08] MEDS: ASCORBIC ACID 500 MG TABLET PO SCH (09:00)
--- NOTE | 2020-05-08 09:05 | NUR ---
AM MEDICATIONS HELD PER THIS PUBLICITY WRITER PATIENT WILL NOT CONSUME BREAKFAST (REFUSING).
[2020-05-08 09:20] LABS: CALCIUM 8.6 mg/dL (8.5-10.1); CREATININE 0.8 mg/dL (0.6-1.0); GFR 68.8; POTASSIUM 4.1 mmol/L (3.5-5.1)
--- NOTE | 2020-05-08 09:46 | PN ---
DATE: 05/08/2020 SUBJECTIVE: The patient is resting, slightly propped up in bed, in no apparent distress, sleepy, but arousable. The nursing staff stated that she has spiked her temperature up to 101.2 despite the fact that she was already on IV Levaquin for possible community-acquired pneumonia. It transpired that 5/6 siblings have been tested positive for coronavirus and unfortunately they were visiting her area. Her tested negative about a week ago and only 1 daughter tested negative recently. OBJECTIVE: GENERAL: On examining her, she was pale, but no jaundice, cyanosis or thyromegaly. No jugular venous distention or limb edema. VITAL SIGNS: Her heart rate was 86, blood pressure was 170/69, temperature was 101.2, respiratory rate was 22 and oxygen saturation was 96% on room air. HEAD, EYES, EARS, NOSE AND THROAT: Showed normocephalic, atraumatic. NECK: Supple. HEART: Showed normal first and second heart sounds. No gallop, rub or murmur. CHEST: Clear to auscultation. No crepitation or rhonchi. ABDOMEN: Distended, soft and nontender. NEUROLOGIC: She is demented, but she does open her eyes and responds appropriately. All cranial nerves are intact. EXTREMITIES: She moves upper extremities without difficulty. She has bilateral below-knee amputation. She does have deep tissue injury both the gluteal area. Her intake over the last 24 hours was 260, output was 450. LABORATORY DATA: Her lab work this morning showed that her serum sodium has risen further to 154, potassium 4.1, chloride 115, bicarbonate 26, anion gap of 13, BUN 21, creatinine 0.8 and estimated GFR was 68 mL per minute. Her glucose was 77 and calcium was 8.6. ASSESSMENT: 1. The patient is now PUI given that she has been exposed to many of her children. She has spiked her temperature up to 101.2. 2. Hypernatremia. 3. She has community-acquired pneumonia, for which she was on IV levofloxacin. She has also deep tissue injury both the gluteal area. PLAN: My plan is to transfer her to the 6th floor as a PUI. We will order the coronavirus testing and also start her on D5W as her sodium has dramatically risen to 154 that might be contributing to her lethargy. I will also order blood culture, repeat chest x-ray and decide further management accordingly. PALOMO JAUREZ MD DR: JOSE ANTONIO/krystal JOB#: [id number] / [id number]
--- NOTE | 2020-05-08 09:56 | NUR ---
SW following. Discussed with RN and Dr. Langford. Plan was for pt to be discharged home today, however pt's children have tested positive for COVID-19. Pt's is being tested today and pt is also being tested and transferred to [address] [place] [address]. Pt's family had been visiting with pt. If pt is COVID negative, pt will discharge home with [facility], and family will have to take precautions. [facility] faxed clinicals to [facility], added to weekend discharge list in case pt's test comes back negative over the weekend. [facility] will continue to follow.
[2020-05-08] MEDS: IV DEXTROSE 5% 1,000 ML IV SCH ×2 (10:18→20:34)
--- NOTE | 2020-05-08 10:20 | NUR ---
HEENA SWAB OBTAINED AND WALKED DOWN TO LAB PER THIS [employer]CH[employer]ECT, PATIENTS' DAUGHTER AND SPOUSE REMAIN AT THE BEDSIDE.
[2020-05-08] MEDS: NITROGLYCERIN 0.4MG/HR PATCH. TD SCH (11:06)
[2020-05-08] MEDS ORDERED: ACETAMINOPHEN 650 MG SUPP.RECT. PR PRN (11:15)
--- NOTE | 2020-05-08 13:51 | RAD ---
Single view of the chest. 05/08/2020 9:42 AM Indication: Reason: fever with ??? exposure to COVID 19 / Spl. Instructions: / History: Comparison: Chest radiograph March 08, 2004 Findings: There is a probable small right pleural effusion. There is diffuse interstitial coarsening, somewhat increased with respect to comparison study. No pneumothorax. Heart size is top normal. Aort ic calcification noted. No acute osseous changes are seen. IMPRESSION: 1.Interval increase in interstitial thickening. This could reflect chronic change, or mild edema. An atypical or viral infectious process is also possible. 2. Small right pleural effusion. Electronically signed by: Shalom Kearns MD (05/08/2020 1:49 PM) [id number]
--- NOTE | 2020-05-08 13:54 | NUR ---
Wound Care Wound Type/Assessment: Follow up visit for DTI's to bilateral buttocks. At this time the wound is ST II with DTI, pink, moist wound bed with purple edges. No other open areas noted on head to toe assessment. Treatment Recommendations/Plan: Continue to apply A&D ointment to bilateral buttocks BID and PRN soiling. Turn Q2H Education provided: Education inappropriate for this pt d/t mental status Offloading surface/device: Wedge, turned to L side, pillows for cushion and comfort Recommended Referrals/Tests: NA Discharge Recommendations for dressings: As above. Follow up 05/12/20
--- NOTE | 2020-05-08 17:30 | NUR ---
Aimee, Gamb Cutter, sent a referral to [facility] to evaluate for GIP.
--- NOTE | 2020-05-08 19:42 | NUR ---
Per hospice nurse evaluation, patient does not qualify at this time. Will re-evaluate tommorrow. Call with any changes/decline.
[2020-05-08] MEDS: ATORVASTATIN CALCIUM 10 MG TABLET. PO SCH (19:45)
[2020-05-08] MEDS: CETIRIZINE HCL 10 MG TABLET. PO SCH (19:45)
[2020-05-09 03:48] VITALS: BP 132/60
[2020-05-09 05:19] LABS: HEMOGLOBIN 9.5 g/dL (12.0-15.5); RED BLOOD COUNT 6.07 x10^6/uL (3.50-5.40); RED CELL DISTRIBUTION WIDTH 26.3 % (11.5-14.5); WHITE BLOOD COUNT 9.5 x10^3/uL (4.0-11.0)
[2020-05-09 05:39] LABS: ALBUMIN 2.3 g/dL (3.4-5.0); ALBUMIN/GLOBULIN RATIO 0.4 (1.0-1.7); CALCIUM 7.9 mg/dL (8.5-10.1); CREATININE 0.9 mg/dL (0.6-1.0); GFR 60.1; POTASSIUM 3.3 mmol/L (3.5-5.1); TOTAL BILIRUBIN 0.3 mg/dL (0.2-1.0); TOTAL PROTEIN 7.5 g/dL (6.4-8.2)
[2020-05-09 07:00] VITALS: BP 173/72
[2020-05-09] MEDS: ASCORBIC ACID 500 MG TABLET PO SCH (08:47)
[2020-05-09] MEDS: ASPIRIN CHEWABLE 81 MG TABLET. PO SCH (08:48)
[2020-05-09] MEDS: LACTOBACILLUS RHAMNOSUS GG 1 CAPSULE. PO SCH (08:48)
[2020-05-09] MEDS: LISINOPRIL 10 MG TABLET PO SCH (08:48)
[2020-05-09] MEDS: CLOPIDOGREL BISULFATE 75 MG TABLET PO SCH (08:48)
[2020-05-09] MEDS: ATENOLOL 50 MG TABLET. PO SCH (08:48)
[2020-05-09] MEDS: POTASSIUM CHLORIDE 20 MEQ TABLET.ER. PO SCH (08:48)
[2020-05-09] MEDS: PANTOPRAZOLE 40 MG TABLET.DR. PO SCH (08:48)
[2020-05-09] MEDS: MULTIVITAMIN with MINERAL TABLET. PO SCH (08:49)
[2020-05-09] MEDS ORDERED: DEXAMETHASONE SOD PHOS 4 MG/ML VIAL IVP SCH (10:15)
[2020-05-09] MEDS ORDERED: MEROPENEM 500 MG in IV NORMAL SALINE 50ML 50 ML IV SCH (10:15)
[2020-05-09] MEDS ORDERED: POTASSIUM CL 20MEQ IN D5W 1,000 ML IV SCH (10:15)
--- NOTE | 2020-05-09 10:24 | PN ---
DATE: 05/09/2020 SUBJECTIVE: The patient is resting slightly propped up in bed, continued to be lethargic, confused. She did spike a temperature yesterday up to 101.7. Her chemistry showed sodium is coming down to 147. PHYSICAL EXAMINATION: GENERAL: When I examined her this morning, she was resting slightly propped up in bed, in no apparent respiratory distress. She was pale, but no jaundice, cyanosis or thyromegaly. No jugular venous distention. No limb edema. VITAL SIGNS: Her heart rate was 79, blood pressure was 173/72, temperature was 99.2, respiratory rate was 18 and oxygen saturation was 93%. HEAD, EYES, EARS, NOSE, AND THROAT: Showed normocephalic, atraumatic. NECK: Supple. HEART: Showed normal first and second heart sounds. No gallop or murmur. CHEST: Clear to auscultation. No crepitation or rhonchi. ABDOMEN: Distended, soft, nontender. No guarding or rigidity. No organomegaly. All hernial orifice intact. Bowel sounds normal. NEUROLOGIC: She is demented, confused; however, all her cranial nerves are intact. She moves upper extremities. She has bilateral below-knee amputation. She has deep tissue injury both the gluteal area. LABORATORY DATA: Her intake over the last 24 hours was incompletely recorded; output was 750. As of this morning, her serum sodium is down to 147, potassium 3.3, chloride 110, bicarbonate 27, anion gap of 10, BUN 18, creatinine 0.9. Estimated GFR was 60 mL per minute. Her glucose 125, calcium was 7.9. Total bilirubin, AST, ALT, alkaline phosphatase were normal. Total protein 7.5, albumin 2.3. Her white cell count was 9500; hemoglobin 9.5; hematocrit 33; MCV 54; and platelet count 279,000. ASSESSMENT: 1. The patient is positive for COVID-19 by rapid testing. 2. Hypernatremia. 3. She was on IV levofloxacin. 4. Hypokalemia. PLAN: My plan is to change IV fluid to D5 with potassium chloride. I will change the IV antibiotic to Zosyn and start her also on dexamethasone. I await the evaluation by hospice as the patient has really advanced dementia and her encephalopathy. The patient is very lethargic for extended period of time. PALOMO JUAREZ MD DR: Chuck JOB#: [id number] / [id number]
[2020-05-09 11:00] VITALS: BP 180/76
[2020-05-09] MEDS: NITROGLYCERIN 0.4MG/HR PATCH. TD SCH (11:44)
--- NOTE | 2020-05-09 14:17 | NUR ---
Pt discharged and admitted to inpatient hospice.
--- NOTE | 2020-05-10 10:33 | DS ---
DATE OF DISCHARGE: 05/09/2020 HOSPITAL COURSE: The patient is an 79-year-old female patient who was admitted through the Emergency Department with complaint of lethargy. She was seen initially at the Emergency Room of [facility], diagnosed with pneumonia and was transferred to [facility] for Neurology consult and possible MRI. The patient's level of consciousness improved; however, she continued to have intermittently lethargic. Her oral intake is poor and she also spiked her temperature and was found to be positive for coronavirus. She was also hypernatremic for which she was treated here with IV D5W and despite treatment with IV fluid, she continued to be somewhat lethargic. Her family requested hospice care; and therefore, the patient was discharged to inpatient hospice care and continued on comfort and end-of-life care. PHYSICAL EXAMINATION: GENERAL: On the day of discharge, she was somewhat pale, but no jaundice, cyanosis or thyromegaly. No jugular venous distention. No lower limb edema. VITAL SIGNS: Her heart rate was 78, blood pressure was 180/76, temperature 97.8, respiratory rate was 18 and oxygen saturation was 93%. HEAD, EYES, EARS, NOSE AND THROAT: Showed normocephalic, atraumatic. NECK: Supple. HEART: Normal first and second heart sounds. No gallop or murmur. CHEST: Clear to auscultation. No crepitation or rhonchi. ABDOMEN: Distended, soft, nontender. NEUROLOGIC: She was demented without any obvious lateralizing sign. She moves her upper extremities without difficulty. She has bilateral below-knee amputation. She has deep tissue injury both the gluteal area. DISCHARGE MEDICATIONS: The patient was admitted to inpatient hospice to continue on morphine, Ativan, acetaminophen, bisacodyl and scopolamine. FINAL DISCHARGE DIAGNOSES: 1. COVID-19 infection. 2. Altered mental status. 3. Advanced dementia. 4. Seizure disorder. 5. Coronary artery disease, status post myocardial infarction. 6. Hyperlipidemia. 7. Hypertension. 8. Bronchial asthma 9. Thalassemia. PALOMO JUAREZ MD DR: JOSE ANTONIO/krystal JOB#: [id number] / [id number]
== END 2020-05-09 14:19 | disposition hospice, home (50) | DRG 177 ==
LOC: 5 NORTH 01:36 → 6 SOUTH 05-08 11:34
PROVIDERS: ADMIT Internal Medicine; ATTEND Internal Medicine
DX: U07.1 COVID-19 (principal); G93.41 Metabolic encephalopathy; J12.82 Pneumonia due to coronavirus disease 2019; E43 Unspecified severe protein-calorie malnutrition; E87.0 Hyperosmolality and hypernatremia; F03.90 Unspecified dementia, unspecified severity, without behavioral disturbance, psychotic disturbance, mood disturbance, and anxiety; G40.909 Epilepsy, unspecified, not intractable, without status epilepticus; I25.10 Atherosclerotic heart disease of native coronary artery without angina pectoris; I25.2 Old myocardial infarction; M19.90 Unspecified osteoarthritis, unspecified site; M81.0 Age-related osteoporosis without current pathological fracture; H35.30 Unspecified macular degeneration; K21.9 Gastro-esophageal reflux disease without esophagitis; D56.9 Thalassemia, unspecified; E78.5 Hyperlipidemia, unspecified; J45.909 Unspecified asthma, uncomplicated; Z89.611 Acquired absence of right leg above knee; Z89.612 Acquired absence of left leg above knee; D50.9 Iron deficiency anemia, unspecified; E87.6 Hypokalemia; I11.0 Hypertensive heart disease with heart failure; I50.9 Heart failure, unspecified; I73.9 Peripheral vascular disease, unspecified; M06.9 Rheumatoid arthritis, unspecified; Z51.5 Encounter for palliative care; Z86.73 Personal history of transient ischemic attack (TIA), and cerebral infarction without residual deficits; Z90.710 Acquired absence of both cervix and uterus; Z95.5 Presence of coronary angioplasty implant and graft; Z88.1 Allergy status to other antibiotic agents; Z88.5 Allergy status to narcotic agent; Z88.8 Allergy status to other drugs, medicaments and biological substances
CPT/HCPCS: 36415; 71045; 80048; 80053; 85027; 87426; J1100; J1956; J2185; J3480; J7060; 92526-GN; 92610-GN; 97110-GO; 97535-GO; G0378

== ENCOUNTER 2020-05-09 14:28 | Inpatient (IN) | payer OTHER ==
[~2020-05-09] VITALS: Ht 134.6 cm; Wt 44.6 kg
[2020-05-09] MEDS ORDERED: BISACODYL 10 MG SUPP.RECT. PR PRN (14:45)
[2020-05-09] MEDS ORDERED: ACETAMINOPHEN 650 MG SUPP.RECT. PR PRN (14:45)
[2020-05-09] MEDS ORDERED: MORPHINE SULFATE 2 MG/ML VIAL. IV PRN (14:45)
[2020-05-09] MEDS ORDERED: SCOPOLAMINE 1.5MG PATCH. TD SCH (15:00)
[2020-05-09 19:00] VITALS: BP 144/67
[2020-05-10 07:00] VITALS: BP 141/66
--- NOTE | 2020-05-10 10:27 | HP ---
ADMIT DATE: 05/10/2020 HISTORY OF PRESENT ILLNESS: The patient is an 79-year-old female patient who was admitted originally with altered mental status that somewhat improved, although she is extremely demented, confused. She basically has marked functional decline. She is requiring assistance with all activities of her ADLs. She was found to be positive for coronavirus with coronavirus pneumonia. Her intake was poor. She was very dehydrated and hypernatremic and the family requested hospice and comfort care; and therefore, the patient was discharged to inpatient hospice. PHYSICAL EXAMINATION: GENERAL: On examining her today, she looked well and was clearly in no apparent respiratory distress. She is pale, but no jaundice, cyanosis or thyromegaly. No jugular venous distention. No lower limb edema. VITAL SIGNS: Her heart rate was 78, blood pressure is 141/66, temperature was 99.7, respiratory rate was 30 and oxygen saturation was 95% on room air. HEAD, EYES, EARS, NOSE AND THROAT: Showed normocephalic, atraumatic. NECK: Supple. HEART: Showed normal first and second heart sounds. No gallop, rub or murmur. CHEST: Clear to auscultation. No crepitation or rhonchi anteriorly. ABDOMEN: Distended, soft, nontender. NEUROLOGIC: She is demented, confused. ASSESSMENT AND PLAN: Advanced dementia, COVID-19 pneumonia, dehydration and poor oral intake. Plan is to continue with inpatient hospice care. Continue with Ativan 2 mg IV every hour, lorazepam 2 mg IV every 2 hours, bisacodyl, scopolamine patch every 72 hours and acetaminophen every 6 hours as needed for pain or fever. PALOMO JUAREZ MD DR: JOSE ANTONIO/krystal JOB#: [id number] / [id number]
[2020-05-10 19:00] VITALS: BP 126/61
[2020-05-11 07:28] VITALS: BP 127/60
--- NOTE | 2020-05-11 08:32 | PN ---
DATE: 05/11/2020 SUBJECTIVE: The patient is resting, slightly propped up in bed, very lethargic and hypoxic. Her temperature is slightly up at 100.1. PHYSICAL EXAMINATION: GENERAL: When I examined her, she was pale, no jaundice, cyanosis or thyromegaly. No jugular venous distention or limb edema. VITAL SIGNS: Her heart rate was 79, blood pressure was 127/60, temperature was 100.1, respiratory rate was 22 and oxygen saturation was 87% on room air. HEAD, EYES, EARS, NOSE AND THROAT: Normocephalic, atraumatic. NECK: Supple. HEART: Normal first and second heart sounds. No gallop or murmur. CHEST: Showed central trachea, equally reduced expansion, reduced air entry, vesicular sounds. I could not appreciate any crepitation or rhonchi anteriorly. ABDOMEN: Distended, soft, nontender. NEUROLOGIC: She is very lethargic. She does attempt to open her eyes, but drifts back to sleep. ASSESSMENT: 1. COVID-19 pneumonia. 2. Acute hypoxic respiratory failure. 3. Advanced dementia. 4. Dehydration and poor oral intake with hypernatremia. PLAN: Continue with comfort care including morphine, Ativan and scopolamine as well as Tylenol. PALOMO JUAREZ MD DR: JOSE ANTONIO/krystal JOB#: [id number] / [id number]
[2020-05-11] MEDS ORDERED: NALOXONE 0.4 MG/ML VIAL. IV PRN (14:30)
--- NOTE | 2020-05-11 15:05 | NUR ---
SW following for discharge planning. Spoke with RN and reviewed chart. Pt admitted [facility]IP with [facility]. Spoke with [facility] CALLAWAY who stated she will reach out to family about possible placement. SW following as needed.
[2020-05-11] MEDS: IV NORMAL SALINE 1000ML BAG 1,000 ML IV SCH (15:07)
[2020-05-11] MEDS: MORPHINE SULFATE 30 ML IV PRN ×2 (15:08→20:48)
[2020-05-11 18:27] VITALS: BP 156/72
[2020-05-12 07:00] VITALS: BP 113/55
--- NOTE | 2020-05-12 08:40 | PN ---
DATE: 05/12/2020 SUBJECTIVE: The patient is resting, slightly propped up in bed, sleeping comfortably. Nursing staff did not voice any concern. She is satting at around 70% on room air. PHYSICAL EXAMINATION: GENERAL: On examining her, she was pale, but no jaundice, cyanosis or thyromegaly. No jugular venous distention. No lower limb edema. VITAL SIGNS: Her heart rate was 123, blood pressure was 113/85, temperature was 104.5, respiratory rate was 20, and oxygen saturation was 56%. The rest of exam is stable. ASSESSMENT: 1. Acute hypoxic respiratory failure. 2. COVID-19 pneumonia. 3. Advanced dementia. 4. Dehydration, poor oral intake, and hypernatremia. PLAN: To continue with comfort care in the form of morphine, Ativan and scopolamine as well as Tylenol. PALOMO JUAREZ MD DR: JOSE ANTONIO/krystal JOB#: [id number] / [id number]
[2020-05-12] MEDS: MORPHINE SULFATE 30 ML IV PRN (10:16)
[2020-05-12] MEDS: IV NORMAL SALINE 1000ML BAG 1,000 ML IV SCH (14:30)
--- NOTE | 2020-05-12 14:48 | NUR ---
[employer] carrier fluids nonadministered by this RN. Previous bag still infusing. Refer to EMAR for further details.
--- NOTE | 2020-05-12 15:34 | NUR ---
SW following for discharge planning. Spoke with RN and reviewed chart. Pt remains GIP with [facility]. Pt on a morphine [employer] and meets GIP criteria per [facility] CALLAWAY. CESIA available as needed. Addendum: 05/13/20 at 0958 by ARNOLDO CALLAWAY pt .
--- NOTE | 2020-05-12 16:26 | NUR ---
Pt's time of 1545. Pt assessed by this RN and Kaye, RN with [facility]. Shaye, pt's daughter at bedside. Dr. Langford notified by telephone at 1550. Keshia, nursing kersey department supervisor notified at 1625. No belongings left with pt, previously taken home by family per Shaye. IV's and Mehta catheter removed by EVELIO Restrepo.
== END 2020-05-12 15:45 | DRG 177 ==
LOC: 6 SOUTH 14:28
PROVIDERS: ADMIT Internal Medicine; ATTEND Internal Medicine
DX: U07.1 COVID-19 (principal); J12.82 Pneumonia due to coronavirus disease 2019; J96.01 Acute respiratory failure with hypoxia; E87.0 Hyperosmolality and hypernatremia; E86.0 Dehydration; F03.90 Unspecified dementia, unspecified severity, without behavioral disturbance, psychotic disturbance, mood disturbance, and anxiety; Z51.5 Encounter for palliative care
CPT/HCPCS: J2270; J7030; G0378